=== PATIENT | male | born 1940 | race Caucasian/White ===

== ENCOUNTER 2022-02-17 13:17 | Outpatient (CLI) | payer MEDICARE, OTHER ==
[2022-02-17 13:58] VITALS: BP 120/60
--- NOTE | 2022-02-17 13:58 | SLEEP CARE CONSULTATION ---
Information from patient questionnaire entered by Jose Nagy. I have reviewed and concur with the information entered by Jose Nagy. This document represents the service I personally performed and the decisions made by me, Tiffani Dykes ARNP. History of Present Illness Service Date and Time: 02/17/2022 1317 Reason for Visit: New patient Chief Complaint: reports: Fatigue, Other (nightmares) Date of Onset: years Usual bedtime: 11-12 midnight Time it takes to fall asleep: 15-20 minutes Snores at night: Yes Observed to quit breathing while asleep: No Sleeps alone due to snoring: Yes ( snores) Number of times waking at night: 1+ Reasons for waking at night: reports: Bathroom, Other (unknown reasons) Toss, Turn, or Twitch while sleeping: Yes Recalls having dreams: Yes (vivid dreams, hx of PTSD) Usually gets out of bed at: 7-8 hours Feels refreshed in the morning: No Morning headache: Yes (occasionally) Sleepy or fatigued during the day: Yes Ever fallen asleep while driving: No (almost) Takes day naps: Yes Dreams during day naps: Yes Year and Where: many years, on [facility] Additional HPI information: I had the pleasure of seeing DHAVAL HERRING today regarding the possibility of him having a sleep disorder. His current complaints are unrefreshed sleep and fatigue. He states he does not know if he snores or not. His snores and uses a CPAP for her sleep apnea. Her snoring and machine are so loud it can keep him awake. He has a history of PTSD that causes him to have nightmares and vivid dreams that can wake him up. He takes multiple naps during the day from 20 minutes to 1.5 hours. He does not feel refreshed when he takes his naps. - Parasomnia Symptoms Ever been unable to move upon waking from sleep: Yes Walks in sleep: No Talks in sleep: Yes (maybe?) Ever acted out dreams in sleep: Yes Ever felt weak in the knees when startled or emotional: Yes Bothered by creepy, crawly, restless sensations in legs: No Problems with memory or concentration: Yes (both) Subjective Initial [place] Sleepiness Scale score: 15 (02/17/2022) Past Medical History Past Medical History: reports: Hypertension, Arthritis, Impotence, Depression, Mood disorder (PTSD), Other Social History The patient's occupation is a RE. Patient is and lives in [place]. Have you smoked in the past 12 months: No Alcohol use: Yes Alcohol amount and frequency: rarely Caffeine use: Yes Caffeine amount and frequency: one cup of coffee daily Family History Family history of sleep disordered breathing: No ( has CPAP for her sleep apnea) Allergies and Home Medications Drug allergies reviewed: Yes (NKDA) Home medication list reviewed: Yes (see list in EMR) Review of Systems Weight loss over past 5 years: 30-35 lbs Cardiovascular: reports: high blood pressure Respiratory: reports: shortness of breath Gastrointestinal: reports: heartburn Urinary: reports: incontinence, impotence Neurological: reports: gait or balance problems Psychiatric: reports: anxiety, depression, mood disorder (PTSD) Endocrine: reports: sluggishness, unexplained weakness Musculoskeletal: reports: joint pain, neck pain, back pain, mobility problems Immunologic: reports: sneezing, itching Physical Exam Vital signs obtained and entered by: JOSE Lin MA Blood Pressure: 120/60 Cuff size: regular Heart Rate: 86 O2 Saturation: 97 Height: 5 ft 7 in Weight: 203 lb 3.2 oz Body Mass Index: 31.8 BMI Classification: Obese Neck circumference: 17 Nostrils: patent to airflow Mouth and throat: narrow oropharynx Soft palate: long Hard palate: normal Uvula: normal Uvula visualization: 25% Mallampati Class III Tongue: normal in size Tonsils: absent bilaterally Neck: normal w/o lymphadenopathy or thyromegaly Heart: regular rate and rhythm Lungs: clear bilaterally Impression and Plan 1. Suspected Obstructive Sleep Apnea-Hypopnea Syndrome, as suggested by a history of observed cessation of breath while asleep, morning headache, frequent awakening during the night, unrefreshed sleep, cognitive impairment, and excessive daytime sleepiness. Narrow oropharynx and obesity are common predisposing factors for obstructive sleep apnea-hypopnea syndrome. I recommend proceeding to polysomnography to confirm the diagnosis and to assess severity. If the patient has significant sleep disordered breathing, a manual CPAP titration study will also be performed to find the optimal treatment pressure. I informed the patient of what the sleep studies involve and after some discussion, obtained agreement to proceed. The pathophysiology of obstructive sleep apnea-hypopnea syndrome was discussed with the patient and health risks of cardiovascular and cerebrovascular disease if not treated. Risks of drowsy driving discussed in detail and patient advised to avoid long distance driving and to green chain puller at the first sign of drowsiness. Patient agreed to plan. * Schedule polysomnography * Avoid long distance driving or driving when feeling sleepy. * Avoid alcohol, sedative and muscle relaxant around bedtime. * Attempt to lose weight. * Review instructions provided by trained office staff on how to prepare for the sleep study. * Return for follow-up after sleep study completed. Counseling Topics: Weight loss health impact Visit Type: In Office Time Spent with Patient (minutes): 31 Provider Statement: I spent 100% of the Face to Face Visit with the patient with greater than 50% spent counseling the patient and coordination of care.
== END 2022-02-17 13:18 | disposition home or self-care (01) ==
LOC: SC 13:17
PROVIDERS: ATTEND Nurse Practitioner Family
DX: G47.10 Hypersomnia, unspecified (principal); R41.89 Other symptoms and signs involving cognitive functions and awareness; R51.9 Headache, unspecified; R06.81 Apnea, not elsewhere classified; G47.8 Other sleep disorders; E66.9 Obesity, unspecified; Z68.31 Body mass index [BMI] 31.0-31.9, adult
CPT/HCPCS: 99203; G0463; 99212

== ENCOUNTER 2022-03-02 20:43 | Outpatient (CLI) | payer MEDICARE, OTHER | END 2022-03-02 20:44 | disposition home or self-care (01) | LOC: SC 20:43 | PROVIDERS: ATTEND Nurse Practitioner Family | DX: R53.83 Other fatigue (principal); R51.9 Headache, unspecified; G47.8 Other sleep disorders; F32.A Depression, unspecified; I10 Essential (primary) hypertension; G47.61 Periodic limb movement disorder | CPT/HCPCS: 95810 ==

== ENCOUNTER 2022-03-17 10:51 | Outpatient (CLI) | payer MEDICARE, OTHER ==
[2022-03-17 11:30] VITALS: BP 118/52
--- NOTE | 2022-03-17 11:30 | SLEEP CARE CONSULTATION ---
Information from patient questionnaire entered by Terra Nagy. I have reviewed and concur with the information entered by Terra Nagy. This document represents the service I personally performed and the decisions made by , Tiffani Dykes ARNP. History of Present Illness Service Date and Time: 03/17/2022 1051 Initial [place] Sleepiness Scale score: 15 (02/17/2022) Current [place] Sleepiness Scale score: 12 (03/17/22) Additional HPI information: DHAVAL HERRING returns for follow up and results of the recently performed polysomnography. The patient was informed of the following findings: No significant sleep disordered breathing with an average AHI of 2.3 and armaan oxygen saturation of 86%. Patient had a loud snore, did not sleep supine and had severe PLMs that did not fragment sleep architecture. I explained the pathophysiology behind obstructive sleep apnea. Patient does not have sleep apnea and was advised how weight gain could increase the risk of developing sleep apnea in the future. I strongly encouraged the patient to lose weight. Patient has loud snoring. Snoring can be reduced by weight loss. Weight loss is best achieved with diet consult. Patient instructed to contact PCP for referral. Snoring can also be treated with an oral appliance from a dentist. Advised to check insurance coverage. In addition, an ENT evaluation can be do to see if other treatment is indicated. Patient counseled not drink alcohol less than 4 hours before bedtime as it can increase snoring and apnea. Patient was cautioned about risks of drowsy driving until sleepiness symptoms resolve. Sleep Study - Results Type of Sleep Study: Polysomnography (COMPLETED 03/02/22) Year and Where: many years, on [facility] Polysomnography/Home Sleep Study results: IMPRESSION: The quality of the study is good. The patient had slightly reduced sleep efficiency due to a prolonged awakening in the middle of the night. The sleep architecture was normal. Respiratory monitoring showed no significant sleep disordered breathing (AHI = 2.3) or hypoxia (armaan oxygen saturation of 86% and only 0.8% to the total sleep time was spent with oxygen saturation below 90%). The patient did not sleep supine during this study. Snore was sporadic but moderate to loud in intensity. There was severe periodic leg movement of sleep not associated with sleep fragmentation. Cardiac rhythm was normal sinus rhythm without significant arrhythmia. No abnormal behavior (parasomnia) observed during the night. Allergies and Home Medications Drug allergies reviewed: Yes (NKDA) Home medication list reviewed: Yes (no changes) Review of Systems Review of systems same as previous: Yes (no changes) Physical Exam Vital signs obtained and entered by: TERRA Lin MA Blood Pressure: 118/52 (LEFT ARM) Cuff size: regular Heart Rate: 92 O2 Saturation: 96 Height: 5 ft 7 in Weight: 200 lb Body Mass Index: 31.3 BMI Classification: Obese Impression and Plan 1. Periodic limb movement, severe, that did not fragment patients sleep. Periodic limb movement of sleep (PLMS) is characterized by episodes of repetitive limb movements that occur during sleep and usually involve the lower limbs. The etiology is unknown. Caffeine can aggravate PLMS and should be avoided. Sleep hygiene methods can also improve sleep as well as lifestyle changes such as regular exercise. Patient was advised that no treatment is needed at this time. If symptoms increase, then further evaluation is indicated. 2. Snoring but no significant sleep disordered breathing. Patient did not sleep supine, so sleep disordered breathing cannot be ruled out in supine position. Patient advised that often weight loss will reduce snoring as well as apnea risk. An oral appliance can also be used for snoring. This would require a dental consultation. Patient cautioned not to use other online appliances as can cause bite issues. A list of accredited dentists in [facility] and one local dentist who makes oral appliances is available in office. Patient is advised to check if insurance will cover. An ENT consult can also be helpful to determine if any other treatment is an option. * Follow up with PCP for severe PLMs as needed * Attempt to lose weight * Avoid alcohol consumption near bedtime * The patient is cautioned about driving until sleepiness is completely resolved. * Return as needed for follow up. Counseling Topics: Weight loss health impact Visit Type: In Office Time Spent with Patient (minutes): 12 Provider Statement: I spent 100% of the Face to Face Visit with the patient with greater than 50% spent counseling the patient and coordination of care.
== END 2022-03-17 10:52 | disposition home or self-care (01) ==
LOC: SC 10:51
PROVIDERS: ATTEND Nurse Practitioner Family
DX: G47.61 Periodic limb movement disorder (principal); R06.83 Snoring; E66.9 Obesity, unspecified; Z68.31 Body mass index [BMI] 31.0-31.9, adult
CPT/HCPCS: 99212; G0463